=== PATIENT | female | born 1940 | race Caucasian/White ===

== ENCOUNTER 2019-06-03 19:20 | Inpatient (IN) ==
--- NOTE | 2019-06-03 19:37 | Emergency Department Note ---
Fall HPI - General Chief Complaint: Fall Stated Complaint: fall, leg pain Time Seen by Provider: 06/03/19 19:28 Source: patient, family, EMS Mode of arrival: EMS - History of Present Illness HPI Narrative: This patient lost her balance on some carpet and jersey and fell and injured her left hip and groin region an hour ago. She cannot stand or bear weight on the leg. No other injuries. - Related Data Home Medications Medication Instructions Recorded Confirmed Aspirin [Suzie Chewable Aspirin] 81 mg PO DAILY 04/10/15 06/03/19 cholecalciferol (vitamin D3) 1,000 1,000 unit PO QDAY cap 06/17/17 08/20/18 unit capsule duloxetine 30 mg capsule,delayed 30 mg PO QDAY 06/17/17 08/20/18 release gabapentin 300 mg capsule See Rx Instructions .ROUTE .COMPLEX 06/17/17 08/20/18 krill 1 cap PO QDAY 06/17/17 08/20/18 vpa-uq-6-kmy-mdx-vzvabhcisuuzl 300 mg-90 mg-24 mg-50 mg capsule multivitamin,lh-vmnl-rqvngnuk 1 tab PO QDAY 06/17/17 08/20/18 omeprazole 40 mg capsule,delayed 40 mg PO QDAY cap 06/17/17 08/20/18 release atorvastatin 10 mg tablet 10 mg PO QDAY 90 Days #90 tab 08/20/17 06/03/19 denosumab 60 mg/mL subcutaneous 60 mg SUB-Q .QYEAR ml 08/20/17 08/20/17 syringe sitagliptin 100 mg tablet 100 mg PO QDAY 90 Days #90 tab 08/20/17 08/20/18 carbidopa 25 mg-levodopa 100 mg 1 tab PO TID 08/20/18 06/03/19 tablet glipizide 5 mg tablet 5 mg PO QDAY 08/20/18 08/20/18 lisinopril 10 mg tablet 10 mg PO DAILY tab 08/20/18 08/20/18 metoprolol succinate 100 mg 50 mg PO QDAY 90 Days #45 tab 08/20/18 08/20/18 tablet,extended release 24 hr Allergies Allergy/AdvReac Type Severity Reaction Status Date / Time hepatitis B virus vaccine, Allergy Severe Nausea/Vomi Verified 06/03/19 19:24 recombin ting [From RECOMBIVAX HB] ciprofloxacin AdvReac Severe Palpitation Verified 06/03/19 19:34 s pregabalin [From Lyrica] AdvReac Severe Sedation Verified 06/03/19 19:24 Review of Systems All systems ED: reviewed and negative except as stated. Fall PMH - Past Medical History [facility] Narrative: Medical History (Last Reviewed 08/20/18 @ 13:26 by Candi Lynch MD) Vitamin D deficiency (Chronic) Tachycardia (Chronic) Sinusitis, chronic (Chronic) Seborrheic keratosis (Chronic) Prediabetes (Chronic) Plantar wart (Chronic) Osteopenia (Chronic) Obesity (Chronic) Nephrolithiasis (Chronic) Kidney stones (Chronic) Hypertensive heart disease, benign w/chronic kidney disease stage 1-4 (Chronic) Hypertension, essential (Chronic) Hyperoxaluria (Chronic) Hyperlipidemia (Chronic) Hematuria (Chronic) Dysmetabolic syndrome X (Chronic) Diabetes mellitus, type II (Chronic) Chronic kidney disease, stage II (mild) (Chronic) Bradycardia (Chronic) Chest pain (Acute) Past Surgical History (Last Reviewed 08/20/18 @ 13:26 by Candi Lynch MD) History of oophorectomy (Chronic) History of hysterectomy (Chronic) History of cholecystectomy (Chronic) Family History (Last Reviewed 08/20/18 @ 13:26 by Candi Lynch MD) Father Pulmonary emphysema Pulmonary embolism Mother Malignant neoplasm of lung, Onset Age: 70 Medical history: Reports: other - Social History smoking status: Never smoker Physical Exam Left hip region and groin show some slight tenderness. Limitations: no limitations General appearance: alert Head: atraumatic Eye: Present: normal appearance Neurological: Present: alert Psychiatric: Present: normal affect Skin: Present: warm, dry Course Vital Signs Temperature 99.2 F H 06/03/19 19:20 Pulse Rate 72 06/03/19 19:20 Respiratory Rate 16 06/03/19 19:20 Blood Pressure 150/58 06/03/19 19:20 Pulse Oximetry (%) 93 06/03/19 19:20 Temperature 99.2 F H 06/03/19 19:20 Pulse Rate 72 06/03/19 20:32 Respiratory Rate 16 06/03/19 19:20 Blood Pressure 163/67 06/03/19 20:32 Pulse Oximetry (%) 97 06/03/19 20:32 Fall - MDM Narrative Medical decision making narrative: Hip x-ray showed left subcapital hip fracture. Discussed case with Dr. Perez the orthopedist and Dr. Manzano will admit the patient to the hospital. - Lab Data Result diagrams: 06/03/19 20:45 06/03/19 20:45 - Radiology Data Radiology results reviewed: Yes I reviewed the patient's radiology results. Disposition Pt seen by DRAFTER APPRENTICE/PA only: No Clinical Impression: Hip fracture, left Disposition: Xfer As Inpt ([facility]) Condition: Good Referrals: Linda Gunter ARNP [Primary Care Provider] - Time of Disposition: 20:48
[2019-06-03] MEDS ORDERED: HYDROmorphone 2 MG/ML VIAL IM ONE (19:48)
[2019-06-03] MEDS ORDERED: LACTATED RINGERS 1,000 ML IV ONE (20:27)
--- NOTE | 2019-06-03 21:12 | Internal Med History&Physical ---
Medical - H&P: HPI Patient information: Note initiated : 06/03/19 at 9:10 pm Service Date, if different from initiated Date: [] Patient: Gloria Workman a 78 y/o F admitted on for fall, leg pain. Chief Complaint: [] History of present illness: Ms. Workman is a 78 year old F Presents the ED after fall with left hip pain. Patient has history of Parkinson's and uses a walker to get around the house. She states she believes she tripped between the transition of the carpet and slight. No syncope. Did not hit her head. Immediate pain to the left hip. Unable to bear weight. She denies chest pain shortness of breath, no fevers or chills. No recent illnesses or surgery. Case was discussed with Dr. Perez. Review of Systems: Pertinent positives as above. Denies headache/fever/chills/nausea/vomiting/ches t or abdominal pain/cough/dyspnea/diarrhea. Main 10 point review of system reviewed negative Medical - H&P: PMH Medical history: Medical History (Last Reviewed 08/20/18 @ 13:26 by Candi Lynch MD) Vitamin D deficiency (Chronic) Tachycardia (Chronic) Sinusitis, chronic (Chronic) Seborrheic keratosis (Chronic) Prediabetes (Chronic) Plantar wart (Chronic) Osteopenia (Chronic) Obesity (Chronic) Nephrolithiasis (Chronic) Kidney stones (Chronic) Hypertensive heart disease, benign w/chronic kidney disease stage 1-4 (Chronic) Hypertension, essential (Chronic) Hyperoxaluria (Chronic) Hyperlipidemia (Chronic) Hematuria (Chronic) Dysmetabolic syndrome X (Chronic) Diabetes mellitus, type II (Chronic) Chronic kidney disease, stage II (mild) (Chronic) Bradycardia (Chronic) Chest pain (Acute) Past Surgical History (Last Reviewed 08/20/18 @ 13:26 by Candi Lynch MD) History of oophorectomy (Chronic) History of hysterectomy (Chronic) History of cholecystectomy (Chronic) Family History (Last Reviewed 08/20/18 @ 13:26 by Candi Lynch MD) Father Pulmonary emphysema Pulmonary embolism Mother Malignant neoplasm of lung, Onset Age: 70 Social History (Last Updated 08/20/18 @ 13:47 by Candi Lynch MD) Denies tobacco drinks alcohol rarely uses walker to ambulate lives by herself with caretakers they live below her that are there every day Medical - H&P: Meds Home Medications Medication Instructions Recorded Confirmed Type Aspirin [Suzie Chewable Aspirin] 81 mg PO DAILY 04/10/15 06/03/19 History cholecalciferol (vitamin D3) 1,000 1,000 unit PO QDAY cap 06/17/17 08/20/18 History unit capsule duloxetine 30 mg capsule,delayed 30 mg PO QDAY 06/17/17 08/20/18 History release gabapentin 300 mg capsule See Rx Instructions .ROUTE .COMPLEX 06/17/17 08/20/18 History krill 1 cap PO QDAY 06/17/17 08/20/18 History ipm-dm-9-mio-ckj-ddlbjtvcepjyy 300 mg-90 mg-24 mg-50 mg capsule multivitamin,gb-kjwn-xjiqhyij 1 tab PO QDAY 06/17/17 08/20/18 History omeprazole 40 mg capsule,delayed 40 mg PO QDAY cap 06/17/17 08/20/18 History release atorvastatin 10 mg tablet 10 mg PO QDAY 90 Days #90 tab 08/20/17 06/03/19 History denosumab 60 mg/mL subcutaneous 60 mg SUB-Q .QYEAR ml 08/20/17 08/20/17 History syringe sitagliptin 100 mg tablet 100 mg PO QDAY 90 Days #90 tab 08/20/17 08/20/18 History carbidopa 25 mg-levodopa 100 mg 1 tab PO TID 08/20/18 06/03/19 History tablet glipizide 5 mg tablet 5 mg PO QDAY 08/20/18 08/20/18 History lisinopril 10 mg tablet 10 mg PO DAILY tab 08/20/18 08/20/18 History metoprolol succinate 100 mg 50 mg PO QDAY 90 Days #45 tab 08/20/18 08/20/18 History tablet,extended release 24 hr Allergies Allergy/AdvReac Type Severity Reaction Status Date / Time hepatitis B virus vaccine, Allergy Severe Nausea/Vomi Verified 06/03/19 19:24 recombin ting [From RECOMBIVAX HB] ciprofloxacin AdvReac Severe Palpitation Verified 06/03/19 19:34 s pregabalin [From Lyrica] AdvReac Severe Sedation Verified 06/03/19 19:24 Medical - H&P: Exam - Constitutional Vitals: Temp Pulse Resp BP Pulse Ox 99.2 F H 84 16 164/72 99 06/03/19 19:20 06/03/19 21:01 06/03/19 19:20 06/03/19 21:01 06/03/19 21:01 Exam: General: Alert, Awake, No acute Distress Eyes/N/T: EOMI, PEERL, Head/Neck: neck supple, normocephalic atraumatic CV: RRR, No murmurs, normal s1/s2 Pulm: Clear b/l, no wheezing/rhonchi/rales Abd: soft, nontender, +BS x4 Ext: no clubbing/cyanosis/edema Neuro: Alert, no focal deficits, moves all extremities, CN 2-12 grossly intact, sensations intact b/l upper/lower Skin: warm/dry Medical - H&P: Reslt - Labs CBC & Chem 7: 06/03/19 20:45 06/03/19 20:45 - Impressions X-ray with left slipped capital hip fracture Medical - H&P: A/P - Narrative A/P Narrative: A: *Left hip fracture from tripping on carpet: *Parkinson's: *Deconditioning/debility: *DM w/neuropathy: *HTN: *CKD II: *GERD: * P: -Dr. Perez for Ortho -Pain control, n.p.o. after midnight -Continue Parkinson medication -Continue beta-leila, hold lisinopril until after surgery -Hold aspirin -SSI - -ppx: SCD/home PPI DNR
[2019-06-03 21:14] LABS: Basophils # (Auto) 0 K/mcL (0.0-0.3); Basophils % (Auto) 0.4 % (0.0-2.0); Eosinophils # (Auto) 0.1 K/mcL (0.0-0.7); Granulocytes % (Auto) 68.5 % (38.0-78.0); Hematocrit 45.3 % (36.0-48.0); Lymphocytes # (Auto) 1.6 K/mcL (1.5-4.8); Lymphocytes % (Auto) 24.8 % (15.5-49.0); Mean Cell Volume 93.5 fL (80.0-100.0); Mean Corpuscular HGB Conc 33.1 g/dL (31.0-36.0); Mean Platelet Volume 9.1 fL (7.4-10.4); Monocytes # (Auto) 0.3 K/mcL (0.1-0.9); Monocytes % (Auto) 5.3 % (1.0-12.0); Platelet Count 175 K/mcL (140-440); RBC 4.84 M/mcL (4.00-5.20); Red Cell Distribution Width 13.6 % (11.5-14.5); WBC 6.4 K/mcL (4.5-11.0)
[2019-06-03 21:25] LABS: Prothrombin Time 13.5 sec (11.9-14.5)
[2019-06-03 21:31] LABS: ALT/SGPT 9 U/l (0-40); AST/SGOT 47 U/l (0-37); Albumin 3.8 gm/dL (3.2-5.2); Albumin/Globulin Ratio 1.4 (1.0-2.3); Alkaline Phosphatase 62 U/L (39-117); Bilirubin,Total 0.6 mg/dL (0.0-1.0); Blood Urea Nitrogen 14 mg/dl (8-23); Calcium 9.4 mg/dl (8.6-10.4); Carbon Dioxide 27 mmol/L (22-30); Chloride 103 mmol/L (96-108); Globulin 2.7 gm/dL (2.2-3.7); Glomerular Filtration Rate 82; Glucose 109 mg/dL (70-105)
[2019-06-03 22:03] LABS: Appearance,Urine CLEAR; Bilirubin,Urine NEG (NEG); Color,Urine YELLOW; Glucose,Urine (UA) NEGATIVE (NEG); Ketones,Urine NEG (NEG); Leukocyte Esterase,Urine NEG /uL (NEG); Nitrate,Urine NEG (NEG); Protein,Urine NEG (NEG); Specific Gravity,Urine 1.011 (1.000-1.035); Urine Blood NEG mg/dL (<0.03); Urobilinogen,Urine NEG (NEG)
[2019-06-03] MEDS ORDERED: SENNOSIDES 1 TABLET PO PRN (22:19)
[2019-06-03] MEDS ORDERED: IPRATROPIUM/ALBUTEROL 3 ML AMPUL.NEB NEB PRN (22:19)
[2019-06-03] MEDS ORDERED: POTASSIUM CHLORIDE 20 MEQ TABLET PO PRN ×2 (22:19)
[2019-06-03] MEDS ORDERED: ACETAMINOPHEN 325 MG TABLET PO PRN (22:19)
[2019-06-03] MEDS ORDERED: MAGNESIUM SULFATE 2 GM/50 ML BAG IV PRN (22:19)
[2019-06-03] MEDS ORDERED: LACTULOSE 20 GM/30 ML ORAL.SOL PO PRN (22:19)
[2019-06-03] MEDS ORDERED: POLYETHYLENE GLYCOL 3350 17 GM PACKET PO PRN (22:19)
[2019-06-03] MEDS ORDERED: POTASSIUM CHLORIDE 40 MEQ in DEXTROSE 5% IN WATER 500 ML IV PRN (22:19)
[2019-06-03] MEDS ORDERED: DEXTROSE 50% 50 ML VIAL IV PRN (22:19)
[2019-06-03] MEDS ORDERED: DEXTROSE 31 GM ORAL.SUSP PO PRN (22:19)
[2019-06-03] MEDS ORDERED: HYDROcodone/APAP 5/325MG TABLET PO PRN (22:19)
[2019-06-03] MEDS ORDERED: PROCHLORPERAZINE 10 MG/2 ML VIAL IV PRN (22:19)
[2019-06-03] MEDS: 0.9 % SODIUM CHLORIDE 10 ML SYRINGE IV SCH (23:30)
[2019-06-03] MEDS ORDERED: 0.9 % SODIUM CHLORIDE 1,000 ML IV SCH (23:45)
--- NOTE | 2019-06-04 04:40 | XRay Report ---
CLINICAL INFORMATION: trauma COMPARISON: 08/20/2018 abdomen films FINDINGS: Left hip subcapital fracture is appreciated. The femoral neck is displaced 5 mm anteriorly and medially. Both hips are normal in width and alignment without significant degeneration or other abnormality. Mild degenerative changes in the SI joints moderate L4-5 and L5-S1. Disc disease. IMPRESSION: Mildly displaced subcapital fracture - left hip Interpreted and Authenticated by: Trevor Rodriguez 06/04/19
--- NOTE | 2019-06-04 04:43 | XRay Report ---
CLINICAL INFORMATION: Preop COMPARISON: 04/10/2015 TECHNIQUE: PA and Lateral views FINDINGS: The heart size, mediastinum and pulmonary vessels are unremarkable. The lungs are clear. There are no effusions. The bones and soft tissues are within normal limits. IMPRESSION: Normal chest. Interpreted and Authenticated by: Trevor Rodriguez 06/04/19
[2019-06-04] MEDS: 0.9 % SODIUM CHLORIDE 10 ML SYRINGE IV SCH ×4 (05:46→21:24)
--- NOTE | 2019-06-04 07:22 | Internal Med Progress Note ---
Medical - PN: Subj Patient information: Note initiated : 06/04/19 at 7:20 am Service Date, if different from initiated Date: [] Patient: Gloria Workman a 78 y/o F admitted on 06/03/19 for fall, leg pain. Chief Complaint: [] Interval history: Ms. Workman is a 78 year old F Presents the ED after fall with left hip pain. Patient has history of Parkinson's and uses a walker to get around the house. She states she believes she tripped between the transition of the carpet and slight. No syncope. Did not hit her head. Immediate pain to the left hip. Unable to bear weight. She denies chest pain shortness of breath, no fevers or chills. No recent illnesses or surgery. Case was discussed with Dr. Perez. 06/04 Has an abdominal ache this morning. Last bowel movement 2 days ago. Has hip pain feels the morphine is wearing off too quickly. Review of Systems: denies headache/fever/chills/nausea/vomiting/chest pain/cough/dyspnea/diarrhea. Otherwise see above. - Constitutional Vitals: Vital Signs Temp Pulse Resp BP Pulse Ox 99.0 F 81 16 117/56 94 06/04/19 03:22 06/04/19 03:22 06/04/19 03:22 06/04/19 03:22 06/04/19 03:22 Period Temp Pulse Resp BP Sys/Xavier Pulse Ox Last 24 Hr 97.7 F-99.2 F 70-93 14-16 117-164/52-113 90-99 Intake and Output 06/03/19 06/04/19 06/04/19 21:59 05:59 13:59 Intake Total 1000 50 Output Total 425 Balance 1000 -375 Weight 72.121 kg 71.214 kg Intake & Output: Intake & Output 06/03/19 06/04/19 06/04/19 21:59 05:59 13:59 Intake Total 1000 50 Output Total 425 Balance 1000 -375 Weight 72.121 kg 71.214 kg Intake: IV 1000 Lactated Ringers 1,000 ml @ 1000 Wide Open IV BOLUS ONE Rx#: [id number] Oral 50 Output: Urine Catheter Amount 425 Other: Meal Egg salad sandwich Percent of Meal Consumed 50% Urine Appearance Uretheral (Nettles) Cloudy Urine Color Light Yajaira Uretheral (Nettles) Straw Exam: General: Alert, Awake, No acute Distress Eyes/N/T: EOMI, Head/Neck: neck supple, CV: RRR, No murmurs, Pulm: Clear b/l, no wheezing/rhonchi/rales Abd: soft, mild generalized TTP, +BS x4 Ext: no clubbing/cyanosis/edema Neuro: Alert, no focal deficits, moves all extremities, Skin: warm/dry Medical - PN: Obj Da - Labs CBC & Chem 7: 06/03/19 20:45 06/03/19 20:45 Labs: Abnormal Lab Results 06/03/19 20:45 Glucose 109 H AST 47 H Meds: Medications Acetaminophen (Tylenol) 650 mg PO Q6HP PRN PRN Reason: PAIN/FEVER > 101 Hydrocodone Bitart/Acetaminophen (Boone 5/325mg) 1 tab PO Q4HP PRN PRN Reason: PAIN LEVEL 3-6 Albuterol/Ipratropium (Duoneb) 3 ml NEB Q4HP PRN PRN Reason: Shortness Of Breath Atorvastatin Calcium (Lipitor) 10 mg PO QDAY SILVESTRE Carbidopa/Levodopa (Sinemet 25/100) 1 tab PO TID SILVESTRE Dextrose (Dextrose 50%) 0 ml IV UD PRN PRN Reason: Hypoglycemia Diagnostic Test (Pha) (Accu-Chek) 1 each FS ACHS [facility] Last Admin: 06/03/19 22:52 Dose: 1 each Documented by: Docusate Sodium (Colace) 100 mg PO BID SILVESTRE Duloxetine HCl (Cymbalta) 60 mg PO QDAY SILVESTRE Famotidine (Pepcid) 20 mg IV Q12 SILVESTRE Gabapentin (Neurontin) 0 mg PO .COMPLEX SILVESTRE Glucose (Insta-Glucose) 15 gm PO PRN PRN PRN Reason: Hypoglycemia Potassium Chloride 40 meq/ (Dextrose) 520 mls @ 130 mls/hr IV UD PRN PRN Reason: Potassium < 3 Magnesium Sulfate (Magnesium Sulfate) 2 gm in 50 mls @ 50 mls/hr IV UD PRN PRN Reason: Magnesium </= 1.6 Sodium Chloride (Sodium Chloride 0.9%) 1,000 mls @ 75 mls/hr IV .[id number] [facility] Stop: 06/04/19 13:04 Last Admin: 06/03/19 23:30 Dose: 75 mls/hr Documented by: Insulin Human Lispro (Humalog) 0 unit SQ ACHS SILVESTRE; Protocol Lactulose (Cephulac) 10 gm PO DAILYP PRN PRN Reason: Constipation Metoprolol Succinate (Toprol Xl) 50 mg PO QDAY SILVESTRE Morphine Sulfate (Morphine) 0 mg IV Q3HP PRN PRN Reason: Pain Ondansetron HCl (Zofran) 4 mg IV Q4HP PRN PRN Reason: Nausea And Vomiting Polyethylene Glycol (Miralax) 17 gm PO DAILYP PRN PRN Reason: Constipation Potassium Chloride (Kdur) 40 meq PO UD PRN PRN Reason: Potssium is 3-3.5 Potassium Chloride (Kdur) 40 meq PO UD PRN PRN Reason: Potassium < 3 Prochlorperazine (Compazine) 10 mg IV Q6HP PRN PRN Reason: Nausea And Vomiting Senna (Senokot) 2 tab PO HSP PRN PRN Reason: Constipation Sodium Chloride (Saline Flush) 10 ml IV Q8 SILVESTRE Last Admin: 06/04/19 05:46 Dose: Not Given Documented by: Medical - PN: A/P - Time Spent With Patient Total time spent is greater than 50% in coordination of care (as documented) at patient's floor/unit and/or counseling patient: - Narrative A/P Narrative: A: *Left hip fracture from tripping on carpet: *Parkinson's: *Deconditioning/debility: *DM w/neuropathy: *HTN: *CKD II: *GERD: * P: -Dr. Perez for Ortho -Pain control, n.p.o. -AXR, [place] bisacodyl -Continue Parkinson medication -Continue beta-leila, hold lisinopril until after surgery -Hold aspirin -SSI -ppx: SCD/home PPI DNR Medical - PN: Qual - VTE Deep Vein Thrombosis/Pulmonary Embolism Present on Admission: No
[2019-06-04] MEDS ORDERED: BISACODYL 10 MG SUPP.RECT PR PRN (07:29)
[2019-06-04] MEDS ORDERED: BISACODYL 10 MG SUPP.RECT PR ONE (07:38)
--- NOTE | 2019-06-04 08:37 | XRay Report ---
CLINICAL INFORMATION: abd pain, ?constipation COMPARISON: None. FINDINGS: The stool gas pattern is unremarkable. There is no free air, soft tissue mass, organomegaly or pathologic calcification. A 10 mm calcification in the central pelvis represents a known calcified granuloma in the posterior paravesical region on a 01/22/2019 CT. It is not a bladder stone. Minimally displaced acute subcapital fracture of the left hip, described on accompanying pelvic plain films, again noted IMPRESSION: Normal abdomen Interpreted and Authenticated by: Trevor Rodriguez 06/04/19
[2019-06-04] MEDS: INSULIN LISPRO 1 UNIT/0.01 ML UNIT SQ SCH ×4 (09:16→20:49)
[2019-06-04] MEDS: ATORVASTATIN 20 MG TABLET PO SCH (09:22)
[2019-06-04] MEDS: DOCUSATE SODIUM 100 MG CAPSULE PO SCH ×2 (09:22→20:48)
[2019-06-04] MEDS: DULoxetine 30 MG CAPSULE PO SCH (09:34)
[2019-06-04] MEDS: FAMOTIDINE/PF 20 MG/2 ML VIAL IV SCH ×2 (09:34→20:47)
[2019-06-04] MEDS: METOPROLOL SUCCINATE 50 MG TAB.XL.24H PO SCH (09:35)
[2019-06-04] MEDS: CARBIDOPA/LEVODOPA 25/100 TABLET PO SCH ×3 (09:35→20:48)
[2019-06-04] MEDS ORDERED: SCOPOLAMINE 1 PATCH PATCH TOPICAL PRN (10:23)
[2019-06-04] MEDS ORDERED: ceFAZolin 2 GM in DEXTROSE 5% IN WATER 50 ML IV SCH ×2 (13:15→14:45)
[2019-06-04] MEDS ORDERED: KETAMINE 10 MG/ML ML IV ONE (13:30)
[2019-06-04] MEDS ORDERED: fentaNYL 100 MCG/2 ML VIAL IV ONE (13:30)
[2019-06-04] MEDS ORDERED: GLYCOPYRROLATE 0.2 MG/ML VIAL IV ONE (13:30)
[2019-06-04] MEDS ORDERED: LIDOCAINE HCL/PF 100 MG/5 ML SYRINGE IV ONE (13:30)
[2019-06-04] MEDS ORDERED: PROPOFOL 200 MG/20 ML VIAL IV ONE (13:30)
[2019-06-04] MEDS ORDERED: ONDANSETRON 4 MG/2 ML VIAL IV ONE (13:30)
[2019-06-04] MEDS ORDERED: DEXAMETHASONE 10 MG/ML VIAL IV ONE (13:30)
[2019-06-04] MEDS ORDERED: ACETAMINOPHEN 1,000 MG/100 ML BOTTLE IV ONE (14:31)
[2019-06-04] MEDS ORDERED: FLUMAZENIL 0.1 MG/ML ML IV PRN (14:31)
[2019-06-04] MEDS ORDERED: fentaNYL 100 MCG/2 ML VIAL IV PRN (14:31)
[2019-06-04] MEDS ORDERED: LABETALOL 5 MG/ML ML IV PRN (14:31)
[2019-06-04] MEDS ORDERED: IPRATROPIUM/ALBUTEROL 3 ML AMPUL.NEB NEB PRN (14:31)
[2019-06-04] MEDS ORDERED: METOPROLOL TARTRATE 5 MG/5 ML VIAL IV PRN (14:31)
[2019-06-04] MEDS ORDERED: BENZOCAINE/MENTHOL 1 LOZENGE PO PRN (14:31)
[2019-06-04] MEDS ORDERED: NALOXONE HCL 0.4 MG/ML VIAL IV PRN (14:31)
[2019-06-04] MEDS ORDERED: METHOCARBAMOL 1,000 MG/10 ML VIAL IV PRN (14:31)
[2019-06-04] MEDS ORDERED: LACTATED RINGERS 250 ML IV PRN (14:31)
[2019-06-04] MEDS ORDERED: HYDROmorphone 2 MG/ML VIAL IV PRN (14:31)
[2019-06-04] MEDS ORDERED: LACTATED RINGERS 1,000 ML IV SCH (14:45)
--- NOTE | 2019-06-04 15:48 | Brief Operative Note ---
Date of procedure: 06/04/19 Pre-op diagnosis: Left valgus impacted femoral neck fracture Post-op diagnosis: same Procedure: percutaneous screw fixation of left valgus impacted femoral neck fracture Grafts/Implants: Yes (3 6.5 cannulated screws) Anesthesia: GLMA Findings: comminuted distal radius, boutonniere deformity of index finger Complications: none Surgeon: Giovani Perez Estimated blood loss (cc): 30 Specimens Removed/Pathology: none sent Condition: stable Disposition: PACU
--- NOTE | 2019-06-04 15:59 | XRay Report ---
CLINICAL INFORMATION: left hip percutaneous pinning Jacqueline COMPARISON: None. FINDINGS: Digital images from the OR are submitted. Film show the left subcapital fracture have been reduced to anatomic alignment and now transfixed by three pins. IMPRESSION: Subcapital fracture, now anatomically aligned and transfixed by three pins. Left hip joint normal Interpreted and Authenticated by: Trevor Rodriguez 06/04/19
[2019-06-04] MEDS ORDERED: hydrALAZINE 20 MG/ML VIAL IV PRN (16:05)
[2019-06-04] MEDS: ONDANSETRON 4 MG/2 ML VIAL IV PRN ×2 (16:12→21:40)
--- NOTE | 2019-06-04 16:24 | Operative Note ---
DATE OF OPERATION: 06/03/2019 PREOPERATIVE DIAGNOSIS: Valgus impacted, closed left femoral neck fracture. POSTOPERATIVE DIAGNOSIS: Valgus impacted, closed left femoral neck fracture. PROCEDURE PERFORMED: Percutaneous screw fixation of the left valgus impacted femoral neck fracture using three 6.5 cannulated screws. SURGEON: Giovani Perez M.D. LAND SURVEYING SURVEY WORKER: None. ANESTHESIA: General. DRAINS: None. SPECIMENS: None. COMPLICATIONS: None. BLOOD LOSS: 20 mL. POSTOPERATIVE CONDITION: Stable. INDICATIONS FOR SURGERY: This is an 78-year-old female who fell last night, had pain and inability to bear weight. X-rays showed a valgus impacted femoral neck fracture. FINDINGS AT SURGERY: As above. Post-fixation showed near anatomic alignment of the fracture and hardware in good position. PROCEDURE IN DETAIL: The patient had been seen in preoperative holding, along with her family who had power of assistant county attorney, and informed consent had been obtained after discussion of risks and benefits of surgery. Risks including, but not limited to, bleeding; infection; injury to nerves, blood vessels, and other surrounding structures; anesthetic risks; nonunion or malunion of fracture; failure of hardware fixation; possibility of developing avascular necrosis resulting in further surgery. They understood and wished to proceed. Correct operative site was marked, and the patient was then taken to the operating room. General anesthesia induced. She was carefully positioned on the fracture table and some gentle traction along with some adduction was performed using fluoroscopy to remove a little bit of the valgus impaction. We then checked the lateral which was anatomic, so we then prepped and draped the left hip in normal sterile fashion. Shower curtain drape was placed and then fluoroscopy was used to identify our entry level account executive. A 1-inch incision was made distal to the greater trochanter with a scalpel through skin. We then also used a scalpel through the IT band, and then a guide pin was placed. On the AP view, we started this just at the inferior margin of the lesser trochanter, careful not to go below it and placed along the inferior femoral neck on AP view. We then got a lateral view and adjusted so it was central on the lateral. We then used the triangle guide to place two proximal pins, one anterior and one posterior. Once we liked our pin position, depth gauge was done and then screws were placed, making sure they were not penetrating the articular surface. Final fluoro images were taken. We irrigated the incision with saline. An 0 Vicryl was used to close the deep fat, and then 2-0 Monocryl for subcutaneous, and then yuridia for skin. Xeroform and sterile dressing were applied. The patient was then awakened, extubated, and transferred to recovery in stable condition. BJB:[email or web address] Job ID: [id number] Doc ID: [id number] Giovani Perez MD
[2019-06-04] MEDS: 0.45 % SODIUM CHLORIDE 1,000 ML IV SCH (17:48)
[2019-06-04] MEDS: LISINOPRIL 10 MG TABLET PO SCH (17:50)
[2019-06-04] MEDS: GABAPENTIN 300 MG CAPSULE PO SCH ×2 (17:58→20:48)
[2019-06-04] MEDS ORDERED: WARFARIN 5 MG TABLET PO ONE (18:00)
[2019-06-04] MEDS: ceFAZolin 1 GM VIAL IV SCH (21:24)
[2019-06-05] MEDS: ceFAZolin 1 GM VIAL IV SCH (05:23)
[2019-06-05] MEDS: 0.9 % SODIUM CHLORIDE 10 ML SYRINGE IV SCH ×6 (05:25→21:04)
[2019-06-05 05:34] LABS: INR 1.3 (0.9-1.1); Prothrombin Time 15.9 sec (11.9-14.5)
[2019-06-05 05:37] LABS: Basophils # (Auto) 0 K/mcL (0.0-0.3); Basophils % (Auto) 0.1 % (0.0-2.0); Eosinophils # (Auto) 0 K/mcL (0.0-0.7); Eosinophils % (Auto) 0.1 % (0.0-7.0); Granulocytes % (Auto) 84.6 % (38.0-78.0); Hematocrit 40.2 % (36.0-48.0); Hemoglobin 13.3 g/dL (12.0-15.0); Lymphocytes # (Auto) 0.9 K/mcL (1.5-4.8); Lymphocytes % (Auto) 11.4 % (15.5-49.0); Mean Cell Volume 94.2 fL (80.0-100.0); Mean Platelet Volume 9.6 fL (7.4-10.4); Monocytes # (Auto) 0.3 K/mcL (0.1-0.9); Monocytes % (Auto) 3.8 % (1.0-12.0); Platelet Count 134 K/mcL (140-440); RBC 4.27 M/mcL (4.00-5.20); Red Cell Distribution Width 13.3 % (11.5-14.5); WBC 7.7 K/mcL (4.5-11.0)
[2019-06-05 05:45] LABS: AST/SGOT 432 U/l (0-37); Albumin 2.9 gm/dL (3.2-5.2); Albumin/Globulin Ratio 1.2 (1.0-2.3); Alkaline Phosphatase 80 U/L (39-117); Bilirubin,Direct 0.3 mg/dL (0.0-0.3); Bilirubin,Total 1.1 mg/dL (0.0-1.0); Blood Urea Nitrogen 10 mg/dl (8-23); Carbon Dioxide 23 mmol/L (22-30); Chloride 98 mmol/L (96-108); Globulin 2.5 gm/dL (2.2-3.7); Glomerular Filtration Rate 86; Glucose 167 mg/dL (70-105); Lactate Dehydrogenase 263 U/L (94-250); Phosphorous 1.6 mg/dL (2.7-4.5); Triglycerides 65 mg/dl (<150); Uric Acid 3.2 mg/dL (2.5-8.0)
[2019-06-05 06:26] LABS: ALT/SGPT 170 U/l (0-40)
[2019-06-05] MEDS: 0.45 % SODIUM CHLORIDE 1,000 ML IV SCH ×2 (07:36→17:20)
[2019-06-05] MEDS: INSULIN LISPRO 1 UNIT/0.01 ML UNIT SQ SCH ×4 (07:36→21:13)
[2019-06-05] MEDS ORDERED: MAGNESIUM SULFATE 2 GM/50 ML BAG IV PRN (09:36)
[2019-06-05] MEDS: DOCUSATE SODIUM 100 MG CAPSULE PO SCH ×2 (09:38→21:03)
[2019-06-05] MEDS: ATORVASTATIN 20 MG TABLET PO SCH (09:38)
[2019-06-05] MEDS: FAMOTIDINE/PF 20 MG/2 ML VIAL IV SCH ×2 (09:38→21:04)
[2019-06-05] MEDS: DULoxetine 30 MG CAPSULE PO SCH (09:40)
[2019-06-05] MEDS: METOPROLOL SUCCINATE 50 MG TAB.XL.24H PO SCH (09:40)
[2019-06-05] MEDS: CARBIDOPA/LEVODOPA 25/100 TABLET PO SCH ×3 (09:40→21:03)
[2019-06-05] MEDS: GABAPENTIN 300 MG CAPSULE PO SCH ×3 (09:40→21:02)
[2019-06-05] MEDS: LISINOPRIL 10 MG TABLET PO SCH (09:41)
--- NOTE | 2019-06-05 09:42 | Internal Med Progress Note ---
Medical - PN: Subj Patient information: Note initiated : 06/05/19 at 9:37 am Service Date, if different from initiated Date: [] Patient: Gloria Workman a 78 y/o F admitted on 06/03/19 for fall, leg pain. Chief Complaint: [] Interval history: Ms. Workman is a 78 year old F Presents the ED after fall with left hip pain. Patient has history of Parkinson's and uses a walker to get around the house. She states she believes she tripped between the transition of the carpet and slight. No syncope. Did not hit her head. Immediate pain to the left hip. Unable to bear weight. She denies chest pain shortness of breath, no fevers or chills. No recent illnesses or surgery. Case was discussed with Dr. Perez. 06/04 Has an abdominal ache this morning. Last bowel movement 2 days ago. Has hip pain feels the morphine is wearing off too quickly. 06/05-patient clinically improved. Systolics elevated. Restarted on home medications. Postoperative care ongoing as per orthopedics. No overnight fever chills. Ongoing physical therapy. Anticipate discharge in 24 hours to SNF. Continue Coumadin dosing based on INR. - Constitutional Vitals: Vital Signs Temp Pulse Resp BP Pulse Ox 98.8 F 64 20 146/59 92 06/05/19 07:34 06/05/19 04:00 06/05/19 08:00 06/05/19 07:34 06/05/19 09:26 Period Temp Pulse Resp BP Sys/Xavier Pulse Ox Last 24 Hr 97.3 F-99.1 F 64-79 12-20 140-193/59-92 91-100 Intake and Output 06/04/19 06/05/19 06/05/19 21:59 05:59 13:59 Intake Total 9539 438 3854 Output Total 280 475 Balance 1220 -355 1240 Weight 162 lb Intake & Output: Intake & Output 06/04/19 06/05/19 06/05/19 21:59 05:59 13:59 Intake Total 4561 188 1259 Output Total 280 475 Balance 1220 -355 1240 Weight 162 lb Intake: IV 100 1000 Sodium Chloride 0.45% 1,000 ml 1000 @ 75 mls/hr IV .[id number] [facility] Rx# :[id number] Oral 800 120 240 IV - Manual Only 600 Output: Urine Catheter Amount 250 475 Estimated Blood Loss 30 Other: Meal jello Breakfast Percent of Meal Consumed 100% 100% Feeding Ability Total Assistance Assist with Tray Set Up Urine Appearance Clear Clear Clear Uretheral (Nettles) Clear Clear Urine Color Light Yajaira Light Yajaira Light Yajaira Uretheral (Nettles) Bright Yellow Bright Yellow Stool Size Small Stool Color Yellow Stool Consistency Liquid Loose # Bowel Movements 1 General appearance: no acute distress Exam: Alert oriented Nonlabored breathing No anxiety No significant pain erythema or swelling around surgery site Medical - PN: Obj Da - Labs CBC & Chem 7: 06/05/19 04:20 06/06/19 07:44 Labs: Abnormal Lab Results 06/05/19 06/05/19 06/05/19 04:20 04:20 04:20 Plt Count 134 L Gran % 84.6 H Lymph % (Auto) 11.4 L Lymph # (Auto) 0.9 L PT 15.9 H INR 1.3 H Sodium 130 L Glucose 167 H Calcium 8.0 L Phosphorus 1.6 L Magnesium 1.5 L Total Bilirubin 1.1 H GGT 170 H AST 432 H ALT 170 H Lactate Dehydrogenase 263 H Total Protein 5.4 L Albumin 2.9 L 06/03/19 20:45 Plt Count Gran % Lymph % (Auto) Lymph # (Auto) PT INR Sodium Glucose 109 H Calcium Phosphorus Magnesium Total Bilirubin GGT AST 47 H ALT Lactate Dehydrogenase Total Protein Albumin Meds: Medications Acetaminophen (Tylenol) 650 mg PO Q6HP PRN PRN Reason: PAIN/FEVER > 101 Hydrocodone Bitart/Acetaminophen ([place] 5/325mg) 1 tab PO Q4HP PRN PRN Reason: PAIN LEVEL 3-6 Albuterol/Ipratropium (Duoneb) 3 ml NEB Q4HP PRN PRN Reason: Shortness Of Breath Atorvastatin Calcium (Lipitor) 10 mg PO QDAY [facility] Last Admin: 06/04/19 09:22 Dose: Not Given Documented by: Bisacodyl (Dulcolax) 10 mg FL DAILYP PRN PRN Reason: Constipation Carbidopa/Levodopa (Sinemet 25/100) 1 tab PO TID [facility] Last Admin: 06/04/19 20:48 Dose: 1 tab Documented by: Dextrose (Dextrose 50%) 0 ml IV UD PRN PRN Reason: Hypoglycemia Diagnostic Test (Pha) (Accu-Chek) 1 each FS ACHS [facility] Last Admin: 06/05/19 07:34 Dose: 1 each Documented by: Docusate Sodium (Colace) 100 mg PO BID [facility] Last Admin: 06/04/19 20:48 Dose: 100 mg Documented by: Duloxetine HCl (Cymbalta) 60 mg PO QDAY [facility] Last Admin: 06/04/19 09:34 Dose: 60 mg Documented by: Famotidine (Pepcid) 20 mg IV Q12 [facility] Last Admin: 06/04/19 20:47 Dose: 20 mg Documented by: Gabapentin (Neurontin) 900 mg PO TID [facility] Last Admin: 06/04/19 20:48 Dose: 900 mg Documented by: Glucose (Insta-Glucose) 15 gm PO PRN PRN PRN Reason: Hypoglycemia Hydralazine HCl (Apresoline) 10 mg IV Q4-6HP PRN PRN Reason: Hypertension Potassium Chloride 40 meq/ (Dextrose) 520 mls @ 130 mls/hr IV UD PRN PRN Reason: Potassium < 3 Magnesium Sulfate (Magnesium Sulfate) 2 gm in 50 mls @ 50 mls/hr IV UD PRN PRN Reason: Magnesium </= 1.6 Sodium Chloride (Sodium Chloride 0.45%) 1,000 mls @ 75 mls/hr IV .[id number] [facility] Last Admin: 06/05/19 07:36 Dose: 75 mls/hr Documented by: Magnesium Sulfate (Magnesium Sulfate) 2 gm in 50 mls @ 50 mls/hr IV UD PRN PRN Reason: Mag < or = 1.7 Insulin Human Lispro (Humalog) 0 unit SQ [facility]; Protocol Last Admin: 06/05/19 07:36 Dose: Not Given Documented by: Lactulose (Cephulac) 10 gm PO DAILYP PRN PRN Reason: Constipation Lisinopril (Zestril) 10 mg PO DAILY [facility] Last Admin: 06/04/19 17:50 Dose: 10 mg Documented by: Metoprolol Succinate (Toprol Xl) 50 mg PO QDAY [facility] Last Admin: 06/04/19 09:35 Dose: 50 mg Documented by: Morphine Sulfate (Morphine) 0 mg IV Q2HP PRN PRN Reason: Pain Last Admin: 06/04/19 11:56 Dose: 2 mg Documented by: Ondansetron HCl (Zofran) 4 mg IV Q4HP PRN PRN Reason: Nausea And Vomiting Last Admin: 06/04/19 21:40 Dose: 4 mg Documented by: Ampicillin 500 Mg (Cap) 1 dose PO TID [facility] Last Admin: 06/04/19 20:48 Dose: 1 dose Documented by: Polyethylene Glycol (Miralax) 17 gm PO DAILYP PRN PRN Reason: Constipation Potassium Chloride (Kdur) 40 meq PO UD PRN PRN Reason: Potssium is 3-3.5 Potassium Chloride (Kdur) 40 meq PO UD PRN PRN Reason: Potassium < 3 Potassium/Phosphorus/Sodium (Neutra Phos) 2 packet PO BID [facility] Prochlorperazine (Compazine) 10 mg IV Q6HP PRN PRN Reason: Nausea And Vomiting Senna (Senokot) 2 tab PO HSP PRN PRN Reason: Constipation Sodium Chloride (Saline Flush) 10 ml IV Q8 [facility] Last Admin: 06/05/19 05:25 Dose: Not Given Documented by: Sodium Chloride (Saline Flush) 10 ml IV Q8 [facility] Last Admin: 06/05/19 05:25 Dose: Not Given Documented by: Warfarin Sodium (Coumadin Per Pharmacy) 1 order PO UD [facility] Medical - PN: A/P - Time Spent With Patient Total time spent is greater than 50% in coordination of care (as documented) at patient's floor/unit and/or counseling patient: 25 - 35 minutes (1) Hip fracture, left Status: Acute Assessment and plan: * Left hip fracture-postop day 1. Postop management as per orthopedics * Elevated LFTs-right upper quadrant ultrasound unremarkable for acute process other than prior cholecystectomy changes. * Suboptimally controlled hypertension continue hydralazine/oral antihypertensives including beta-leila/COBY inhibitor/ * Low magnesium stop replacement * Low phosphorus oral replacement * History of Parkinson's-continue levodopa carbidopa * Significant deconditioning/debility * Diabetes mellitus -continue sitagliptin/sliding scale insulin/CC diet * Neuropathy continue gabapentin/Cymbalta * CKD stage II * Hyperlipidemia continue statin * History of GERD continue PPI * Anxiety disorder continue duloxetine * DNR * Prophylaxis on Coumadin Plan * Continue postoperative care per orthopedics * Pain management DVT prophylaxis per orthopedics * Replace magnesium/phosphorus * Optimize antihypertensives * Delirium watch * Pre-existing well condition management and home meds * Coumadin dosing based on INR * Discharge planning per case management Current Visit: No Medical - PN: Qual - VTE Deep Vein Thrombosis/Pulmonary Embolism Present on Admission: No
[2019-06-05] MEDS ORDERED: FLU VACC QS2019-20(6MOS UP)/PF 60 MCG/0.5 ML SYRINGE IM ONE (10:00)
--- NOTE | 2019-06-05 12:42 | Orthopedic Progress Note ---
Subjective Patient information: Note initiated : 06/05/19 at 12:39 pm Service Date, if different from initiated Date: [] Patient: Gloria Workman 78 y/o F admitted on 06/03/19 for fall, leg pain. Chief Complaint: [] Principal diagnosis: femoral neck fracture Interval history: pain much improved since surgery, has been up Objective Vital signs: Vital Signs Temp Pulse Resp BP BP Pulse Ox 06/05/19 09:26 92 06/05/19 08:00 20 91 06/05/19 07:34 98.8 F 20 146/59 91 06/05/19 04:00 99.1 F H 64 20 158/68 96 06/04/19 23:50 98.2 F 68 20 149/67 92 06/04/19 19:20 69 20 140/66 99 06/04/19 17:30 70 149/70 98 06/04/19 17:00 73 175/74 97 06/04/19 16:32 72 170/75 95 06/04/19 16:17 71 171/73 95 06/04/19 16:02 73 188/77 94 06/04/19 15:47 76 193/78 95 06/04/19 15:36 94 06/04/19 15:32 98.3 F 79 16 95 06/04/19 15:23 97.6 F 78 15 160/92 96 06/04/19 15:15 97.6 F 78 16 161/76 98 06/04/19 15:00 97.6 F 74 17 160/66 100 06/04/19 14:57 100 06/04/19 14:55 72 14 141/81 98 06/04/19 14:50 70 13 161/72 100 06/04/19 14:45 70 12 161/67 100 06/04/19 14:41 97.3 F 69 13 153/81 100 Intake and Output 06/04/19 06/05/19 06/05/19 21:59 05:59 13:59 Intake Total 7417 374 4336 Output Total 280 475 Balance 1220 -355 1240 Intake: IV 100 1000 Sodium Chloride 0.45% 1,000 ml 1000 @ 75 mls/hr IV .[id number] [facility] Rx# :[id number] Oral 800 120 240 IV - Manual Only 600 Output: Urine Catheter Amount 250 475 Estimated Blood Loss 30 Other: Meal jello Breakfast Percent of Meal Consumed 100% 100% Feeding Ability Total Assistance Assist with Tray Set Up Urine Appearance Clear Clear Clear Uretheral (Nettles) Clear Clear Urine Color Light Yajaira Light Yajaira Light Yajaira Uretheral (Nettles) Bright Yellow Bright Yellow Stool Size Small Stool Color Yellow Stool Consistency Liquid Loose # Bowel Movements 1 Weight 162 lb Intake & Output: Intake & Output 06/04/19 06/05/19 06/05/19 21:59 05:59 13:59 Intake Total 8613 601 3551 Output Total 280 475 Balance 1220 -355 1240 Weight 162 lb Intake: IV 100 1000 Sodium Chloride 0.45% 1,000 ml 1000 @ 75 mls/hr IV .[id number] [facility] Rx# :[id number] Oral 800 120 240 IV - Manual Only 600 Output: Urine Catheter Amount 250 475 Estimated Blood Loss 30 Other: Meal jello Breakfast Percent of Meal Consumed 100% 100% Feeding Ability Total Assistance Assist with Tray Set Up Urine Appearance Clear Clear Clear Uretheral (Nettles) Clear Clear Urine Color Light Yajaira Light Yajaira Light Yajaira Uretheral (Nettles) Bright Yellow Bright Yellow Stool Size Small Stool Color Yellow Stool Consistency Liquid Loose # Bowel Movements 1 Dressing: Yes clean, Yes dry, Yes intact Weight bearing status: as tolerated Neurological exam IM: Yes oriented X3 Extremities exam IM: Yes neurovascular intact - Labs CBC & BMP: 06/05/19 04:20 06/05/19 04:20 Labs: Orthopedic Labs 06/05/19 06/03/19 04:20 20:28 PT 15.9 H 13.5 INR 1.3 H 1.0 06/05/19 06/03/19 04:20 20:45 Hgb 13.3 15.0 Hct 40.2 45.3 Assessment and Plan (1) Hip fracture, left POD#1 s/p perc pinning-stable, pain well controlled -OK to d/c from orthopedic standpoint when ok'd by hospitalist -WBAT LLE -yuridia out 10-14 days post op -f/u 3-4 weeks with ortho -coumadin for dvt prophylaxis for 4 weeks post op, goal inr 1.5-2.2 -dry dressing change daily, ok to shower Status: Acute Qualifiers: Fracture type: closed
--- NOTE | 2019-06-05 12:45 | Discharge Summary ---
Ortho Discharge Plan - General - Patient Instructions Diet: Regular Diet Activity: weight bearing as tolerated Dressing Care: May shower in 2 days (then dry dressing change daily, yuridia out 10-14 days post op) - Problem Maintenance (1) Hip fracture, left Status: Acute Qualifiers: Fracture type: closed - Follow Up Plan Follow Up Appointments: Linda Gunter ARNP [Primary Care Provider] - Rohan Rossi PA-C [Physician Ceiling Installer] - Disposition: [facility] Prognosis: Good Rehab Potential: Fair
[2019-06-05] MEDS ORDERED: WARFARIN 5 MG TABLET PO ONE (14:00)
--- NOTE | 2019-06-05 16:15 | Ultrasound Report ---
CLINICAL INFORMATION: elevated LFTs COMPARISON: None. FINDINGS: Gallbladder is surgically absent. Common bile duct is normal - 4 mm. The liver and pancreas are normal in size configuration and attenuation without focal lesion. No free fluid IMPRESSION: Cholecystectomy changes. Liver, bile ducts and pancreas are unremarkable. Interpreted and Authenticated by: Trevor Rodriguez 06/05/19
[2019-06-05] MEDS: NEUTRA PHOS 1 PACKET PO SCH (20:59)
[2019-06-06] MEDS: 0.9 % SODIUM CHLORIDE 10 ML SYRINGE IV SCH ×2 (04:13)
[2019-06-06 05:59] LABS: INR 1.4 (0.9-1.1); Prothrombin Time 16.7 sec (11.9-14.5)
[2019-06-06] MEDS: INSULIN LISPRO 1 UNIT/0.01 ML UNIT SQ SCH (07:22)
[2019-06-06] MEDS: 0.45 % SODIUM CHLORIDE 1,000 ML IV SCH (07:41)
[2019-06-06] MEDS: NEUTRA PHOS 1 PACKET PO SCH (08:24)
[2019-06-06] MEDS: FAMOTIDINE/PF 20 MG/2 ML VIAL IV SCH ×2 (08:24→08:35)
[2019-06-06] MEDS: GABAPENTIN 300 MG CAPSULE PO SCH (08:25)
[2019-06-06] MEDS: DULoxetine 30 MG CAPSULE PO SCH (08:25)
[2019-06-06] MEDS: METOPROLOL SUCCINATE 50 MG TAB.XL.24H PO SCH (08:25)
[2019-06-06] MEDS: DOCUSATE SODIUM 100 MG CAPSULE PO SCH (08:25)
[2019-06-06] MEDS: CARBIDOPA/LEVODOPA 25/100 TABLET PO SCH (08:25)
[2019-06-06] MEDS: ATORVASTATIN 20 MG TABLET PO SCH (08:26)
[2019-06-06] MEDS: LISINOPRIL 10 MG TABLET PO SCH (08:26)
[2019-06-06 08:40] LABS: ALT/SGPT 147 U/l (0-40); AST/SGOT 106 U/l (0-37); Albumin 2.7 gm/dL (3.2-5.2); Alkaline Phosphatase 67 U/L (39-117); Bilirubin,Direct < 0.2 mg/dL (0.0-0.3); Bilirubin,Total 0.9 mg/dL (0.0-1.0); Blood Urea Nitrogen 14 mg/dl (8-23); Calcium 8.2 mg/dl (8.6-10.4); Carbon Dioxide 20 mmol/L (22-30); Chloride 104 mmol/L (96-108); Globulin 2.8 gm/dL (2.2-3.7); Glomerular Filtration Rate 86; Glucose 95 mg/dL (70-105); Lactate Dehydrogenase 297 U/L (94-250); Phosphorous 2.1 mg/dL (2.7-4.5); Triglycerides 106 mg/dl (<150); Uric Acid 3.1 mg/dL (2.5-8.0)
[2019-06-06] MEDS ORDERED: sitaGLIPtin 100 MG TABLET PO SCH (09:00)
--- NOTE | 2019-06-06 09:21 | Discharge Summary ---
Medical - DS: Prov Patient information: Note initiated : 06/06/19 at 9:18 am Service Date, if different from initiated Date: [] Patient: Gloria Workman 78 y/o F admitted on 06/03/19 for fall, leg pain. Chief Complaint: [] Date of admission: 06/03/19 22:17 Discharge date: 06/06/19 Primary care physician: Linda Gunter Consults: 06/03/19 Consult to Physician [CONS] Stat Comment: Consulting Provider: Giovani Perez Reason For Exam: Physician to Consult Consult to Physician [CONS] Stat Comment: Consulting Provider: Micheal Manzano Reason For Exam: Physician to Consult 06/03/19 22:19 Consult to Physician [CONS] Routine Comment: Consulting Provider: Giovani Perez Reason For Exam: Physician to Consult Medical - DS: Meds - Discharge Medications Prescriptions: Warfarin [Coumadin] 5 mg PO DAILY #28 tab Transmission Status: Received by [employer] #[id number] HYDROcodone/ACETAMINOPHEN [[place] 5-325 Tablet] 1 each PO Q4HP PRN #60 tab PRN Reason: Pain Prescription Printed Active and Home Medications: Home Medications Aspirin [Suzie Chewable Aspirin] 81 mg PO DAILY 04/10/15 [History Confirmed Last Taken Unknown] cholecalciferol (vitamin D3) 1,000 unit capsule 1,000 unit PO QDAY cap 06/17/17 [History Confirmed 06/03/19 Last Taken Unknown] duloxetine 30 mg capsule,delayed release 60 mg PO QDAY 06/17/17 [History Confirmed 06/03/19 Last Taken Unknown] gabapentin 300 mg capsule 900 mg PO TID 06/17/17 [History Confirmed 06/04/19 Last Taken Unknown] krill oee-pw-[id number]-iuc-lrozvcpauurzs 300 mg-90 mg-24 mg-50 mg capsule 1 cap PO QDAY 06/17/17 [History Confirmed 06/03/19 Last Taken Unknown] multivitamin,zw-dkke-kzpqqixf 1 tab PO QDAY 06/17/17 [History Confirmed 06/03/19 Last Taken Unknown] omeprazole 40 mg capsule,delayed release 40 mg PO QDAY cap 06/17/17 [History Confirmed 06/03/19 Last Taken Unknown] atorvastatin 10 mg tablet 10 mg PO QDAY 90 Days #90 tab 08/20/17 [History Co nfirmed 06/03/19 Last Taken Unknown] denosumab 60 mg/mL subcutaneous syringe 60 mg SUB-Q .QYEAR ml 08/20/17 [History Confirmed 06/04/19 Last Taken 12/17/18] sitagliptin 100 mg tablet 100 mg PO QDAY 90 Days #90 tab 08/20/17 [History Confirmed 06/03/19 Last Taken Unknown] carbidopa 25 mg-levodopa 100 mg tablet 1 tab PO TID 08/20/18 [History Confirmed 06/03/19 Last Taken Unknown] glipizide 5 mg tablet 5 mg PO QDAY 08/20/18 [History Confirmed 06/03/19 Last Taken Unknown] lisinopril 10 mg tablet 10 mg PO DAILY tab 08/20/18 [History Confirmed 06/03/19 Last Taken Unknown] metoprolol succinate 100 mg tablet,extended release 24 hr 50 mg PO HS 90 Days #45 tab 08/20/18 [History Confirmed 06/04/19 Last Taken 06/02/19] Ampicillin 500 mg PO TID 06/04/19 [History Confirmed 06/04/19 Last Taken 06/02/19] HYDROcodone/ACETAMINOPHEN [[place] 5-325 Tablet] 1 each PO Q4HP PRN #60 tab 06/05/19 [Rx Last Taken Unknown] Medical - DS: Hosp Hospital Course: Discharge diagnosis * Left hip fracture-postop day 2. Doing well. Discharging to SNF for continued posthospitalization/postop rehab. Continue follow-up as per recommendation of orthopedics along with postop care. * Postop DVT prophylaxis on Coumadin for 4 weeks as per orthopedics. Continue dosing based on INR * Elevated LFTs-rapidly downtrending. Negative RUQ ultrasound * History of hypertension -continue home dose oral antihypertensives on discharge * Low magnesium-resolved with replacement * Low phosphorus resolved with replacement * History of Parkinson's-continue levodopa carbidopa * Significant deconditioning/debility * Diabetes mellitus -continue CC diet/home medications on discharge * Neuropathy continue gabapentin/Cymbalta * CKD stage II. Follow-up PCP on discharge * Hyperlipidemia continue statin * History of GERD continue PPI * Anxiety disorder continue duloxetine Brief hospital course Ms. Workman is a 78 year old F Presents the ED after fall with left hip pain. Patient has history of Parkinson's and uses a walker to get around the house. She states she believes she tripped between the transition of the carpet and slight. No syncope. Did not hit her head. Immediate pain to the left hip. Unable to bear weight. She denies chest pain shortness of breath, no fevers or chills. No recent illnesses or surgery. Case was discussed with Dr. Perez. 06/04 Has an abdominal ache this morning. Last bowel movement 2 days ago. Has hip pain feels the morphine is wearing off too quickly. 06/05-patient clinically improved. Systolics elevated. Restarted on home medications. Postoperative care ongoing as per orthopedics. No overnight fever chills. Ongoing physical therapy. Anticipate discharge in 24 hours to SNF. Continue Coumadin dosing based on INR. Discharge diagnosis: . - Time Spent with Patient Total time spent providing and/or coordinating discharge services: Greater than 30 minutes Medical - DS: Exam - Constitutional Vitals: Vital Signs Temp Pulse Pulse Resp BP Pulse Ox 06/06/19 07:15 97.9 F 20 156/65 90 06/06/19 04:10 97.8 F 62 16 127/59 94 06/05/19 23:47 97.3 F 68 20 122/59 95 06/05/19 23:05 67 16 94 06/05/19 18:20 97.7 F 67 18 121/57 95 06/05/19 16:00 99.1 F H 20 134/64 93 06/05/19 12:00 98.2 F 20 113/62 94 06/05/19 09:26 92 Intake and Output 06/05/19 06/06/19 06/06/19 21:59 05:59 13:59 Intake Total 1810 240 Output Total 1100 1400 Balance 710 -1400 240 Intake: IV 1050 Sodium Chloride 0.45% 1,000 ml 1000 @ 75 mls/hr IV .[id number] [facility] Rx# :[id number] Oral 760 240 Output: Urine Catheter Amount 1100 1400 Other: Meal Lunch Breakfast Percent of Meal Consumed 100% 100% Urine Appearance Clear Clear Uretheral (Nettles) Clear Urine Color Bright Yellow Bright Yellow Uretheral (Nettles) Bright Yellow Urine Odor Normal Weight 164 lb Medical - DS: Data Labs on day of discharge: Labs from last 24 hours 06/06/19 06/06/19 07:44 04:20 PT 16.7 H INR 1.4 H Sodium 133 Potassium 3.9 Chloride 104 Carbon Dioxide 20 L Anion Gap 9.0 BUN 14 Creatinine 0.6 GFR Calculation 86 Glucose 95 Uric Acid 3.1 Calcium 8.2 L Phosphorus 2.1 L Magnesium 2.0 Total Bilirubin 0.9 Direct Bilirubin < 0.2 GGT 121 H AST 106 H ALT 147 H Alkaline Phosphatase 67 Lactate Dehydrogenase 297 H Total Protein 5.5 L Albumin 2.7 L Globulin 2.8 Albumin/Globulin Ratio 1.0 Triglycerides 106 Medical - DS: A/P - Patient/Caregiver Discharge Instructions Activity: as per physical therapy, increase activity as tolerated, resume usual activities as tolerated Diet: Regular Diet Additional Instructions: Discharge Instructions: Do the exercises at home that physical therapy gave you. Weight bearing as tolerated. Take your prescription, photo ID, insurance cards, and current medication list with you to your first physical therapy appointment. Take your prescription to metal pickling equipment operator any medication or equipment (such as walker, crutches, toilet riser or C.P.M.) Wear comfortable clothing for your physical therapy. To avoid constipation while taking any narcotic pain medication, take an over the counter stool softener/laxative. Use your Cryocuff or ice packs as directed, on for 20 minutes at a time, throughout the day. Ice and elevation will help with pain and swelling. Call your physician for fevers above 100.5 or pain not controlled by medication. ORTHO RECOMMENDATIONS -WBAT LLE -yuridia out 10-14 days post op -f/u 3-4 weeks with ortho -coumadin for dvt prophylaxis for 4 weeks post op, goal inr 1.5-2.2 -dry dressing change daily, ok to shower SNF to schedule orthopedic/PCP follow-up on discharge Prescriptions: Warfarin [Coumadin] 5 mg PO DAILY #28 tab Transmission Status: Received by [employer] #[id number] HYDROcodone/ACETAMINOPHEN [[place] 5-325 Tablet] 1 each PO Q4HP PRN #60 tab PRN Reason: Pain Prescription Printed Other Amb Orders: OT Discharge Order Location: None Selected Physical Therapy at Discharge - General Location: None Selected - Problem Maintenance (1) Hip fracture, left Status: Acute Qualifiers: Fracture type: closed - Follow up Plan Follow up with: Linda Gunter ARNP [Primary Care Provider] - Rohan Rossi PA-C [Physician Major General] - Disposition: Xfer SNF Care Plan Goals: This discharge packet is provided to you to help keep you informed about your care. We want to ensure you get everything you need when you go home. You will also be receiving a call from us in a few days to follow up with you and see how you are doing since your discharge. This gives us a chance to listen to any concerns you maybe experiencing since you were discharged or any additional needs you may have, as well as providing us feedback on your care experience. We strive to always provide excellent care and thank you for your feedback and for choosing [facility]. Prognosis: Good Rehab Potential: Fair I certify that the patient requires SNF services: Yes Overall status at discharge: patient is progressing back to baseline Medical - DS: Qual - VTE Deep Vein Thrombosis/Pulmonary Embolism Present on Admission: No
== END 2019-06-06 10:10 | DRG 482 ==
LOC: ED 19:20 → MEDSUR 22:17
PROVIDERS: ADMIT Internal Medicine; ATTEND Internal Medicine